=== PATIENT | female | born 1990 | race Asian ===

== ENCOUNTER 2017-01-14 11:55 | Inpatient (IN) | payer MEDICAID ==
[~2017-01-14] VITALS: Ht 165.1 cm; Wt 79.4 kg
[2017-01-14] MEDS ORDERED: SODIUM CHLORIDE 0.9% 1,000 ML IV ONE (12:26)
[2017-01-14] MEDS ORDERED: SODIUM CHLORIDE 0.9% 1,000ML IVBOLUS ONE (12:30)
[2017-01-14] MEDS ORDERED: ACETAMINOPHEN 500 MG TABLET PO ONE (12:30)
[2017-01-14] MEDS ORDERED: SODIUM CHLORIDE FLUSH 10ML SYR IVF ONE (12:30)
[2017-01-14 12:52] LABS: ASPARTATE AMINO TRANSFERASE 13 U/L (15-37); BLOOD UREA NITROGEN 13 mg/dL (7-18)
[2017-01-14] MEDS ORDERED: CEFTRIAXONE 1,000 MG in SODIUM CHLORIDE 0.9% 50 ML IVPB ONE (13:00)
[2017-01-14] MEDS ORDERED: CEFTRIAXONE PMX 1GM/50ML 50 ML IV SCH (13:00)
[2017-01-14] MEDS ORDERED: CEFTRIAXONE PMX 1GM/50ML 50 ML IVPB ONE (13:00)
[2017-01-14] MEDS ORDERED: ACETAMINOPHEN 500 MG TABLET ONE (13:15)
[2017-01-14] MEDS ORDERED: CEFTRIAXONE PMX 1GM/50ML 50 ML ONE (13:15)
[2017-01-14] MEDS ORDERED: POLYETHYLENE GLYCOL 17 GM PACKET PO PRN (16:00)
[2017-01-14] MEDS ORDERED: BISACODYL 10 MG SUPP PR PRN (16:00)
[2017-01-14] MEDS ORDERED: OXYcodone IR 5MG TABLET PO PRN (16:00)
[2017-01-14] MEDS ORDERED: DOCUSATE 100 MG CAPSULE PO PRN (16:00)
[2017-01-14] MEDS ORDERED: ONDANSETRON 2MG/ML, 2ML IVPush PRN (16:00)
[2017-01-14 16:56] VITALS: BP 112/72
[2017-01-14] MEDS: SODIUM CHLORIDE 0.9% 1,000 ML IV SCH (17:38)
[2017-01-14 19:07] LABS: DAU SCREEN DISCLAIMER
[2017-01-14 19:23] VITALS: BP 109/68
[2017-01-14] MEDS: ENOXAPARIN 40 MG/0.4 ML SQ SCH (21:00)
[2017-01-15] MEDS: SODIUM CHLORIDE 0.9% 1,000 ML IV SCH
[2017-01-15] MEDS: ACETAMINOPHEN 325 MG TABLET PO PRN ×4 (00:04→19:58)
[2017-01-15 01:32] VITALS: BP 102/51
[2017-01-15] MEDS: MEROPENEM 1 GM in SODIUM CHLORIDE 0.9% 100 ML IV SCH ×3 (04:56→21:09)
[2017-01-15] MEDS ORDERED: MEROPENEM 1 GM in SODIUM CHLORIDE 0.9% 50 ML IV SCH (05:00)
[2017-01-15 05:28] LABS: BLOOD UREA NITROGEN 8 mg/dL (7-18)
[2017-01-15 07:06] VITALS: BP 117/78
[2017-01-15 13:00] VITALS: BP 122/65
[2017-01-15] MEDS ORDERED: CEFTRIAXONE PMX 1GM/50ML 50 ML IV SCH ×2 (13:00→15:00)
[2017-01-15 19:10] VITALS: BP 126/84
[2017-01-15] MEDS: ENOXAPARIN 40 MG/0.4 ML SQ SCH (21:00)
[2017-01-16 03:55] VITALS: BP 118/76
[2017-01-16] MEDS: MEROPENEM 1 GM in SODIUM CHLORIDE 0.9% 100 ML IV SCH ×2 (05:04→13:38)
[2017-01-16 06:43] VITALS: BP 130/87
[2017-01-16] MEDS: ACETAMINOPHEN 325 MG TABLET PO PRN ×2 (07:18→13:43)
[2017-01-16 12:40] VITALS: BP 122/84
[2017-01-16] MEDS ORDERED: CEFD300C37 PO (16:12)
== END 2017-01-16 17:55 | disposition home or self-care (01) | DRG 872 ==
LOC: ED 12:52 → EDIP 14:17 → 3NE 16:49
PROVIDERS: ADMIT Internal Medicine; ATTEND Internal Medicine
DX: A41.9 Sepsis, unspecified organism (principal); N10 Acute pyelonephritis; F12.90 Cannabis use, unspecified, uncomplicated; F17.290 Nicotine dependence, other tobacco product, uncomplicated; Z80.0 Family history of malignant neoplasm of digestive organs
CPT/HCPCS: 36415; 71010; 76770; 80048; 80053; 80307; 81001; 83605; 83735; 84100; 84145; 84443; 84703; 85025; 87040; 87077; 87086; 87186; 93005; 96365; 96366; J0696; J2185; J7030

== ENCOUNTER 2018-06-09 05:29 | Inpatient (IN) | payer MEDICAID ==
[~2018-06-09] VITALS: Ht 165.1 cm; Wt 104.5 kg
[~2018-06-09 05:29] MED LIST: CEFD300C37 PO
[2018-06-09 06:35] LABS: MICROSCOPIC INDICATED
[2018-06-09 06:38] LABS: AMPHETAMINE SCREEN, URINE Negative (Negative); BARBITURATE SCREEN, URINE Negative (Negative); BENZODIAZEPINE SCREEN, URINE Negative (Negative); CANNABINOID SCREEN, URINE Negative (Negative); COCAINE SCREEN, URINE Negative (Negative); METHADONE SCREEN, URINE Negative (Negative); OPIATE SCREEN, URINE Negative (Negative)
[2018-06-09] MEDS ORDERED: OXYTOCIN 30U/ 0.9% NaCL 500ML 500 ML IV ONE (06:54)
[2018-06-09] MEDS ORDERED: D5%-LACTATED RINGERS 1,000 ML IV SCH (06:54)
[2018-06-09] MEDS ORDERED: AMPICILLIN 2 GM in SODIUM CHLORIDE 0.9% 100 ML IVPB STA (06:54)
[2018-06-09] MEDS ORDERED: ONDANSETRON 2MG/ML, 2ML IVPush PRN (07:00)
[2018-06-09] MEDS ORDERED: CALCIUM CARBONATE 500 MG TAB.CHEW PO PRN ×2 (07:00→19:30)
[2018-06-09] MEDS ORDERED: FENTANYL PF 100 MCG/2ML IV PRN (07:00)
[2018-06-09] MEDS ORDERED: FENTANYL PF 100 MCG/2ML IVPush PRN (07:00)
[2018-06-09 07:30] LABS: BASOPHILS # (AUTO) 0.07 x10^3/uL (0-0.1); BASOPHILS % (AUTO) 1 % (0-1); EOSINOPHILS # (AUTO) 0.05 x10^3/uL (0-0.4); EOSINOPHILS % (AUTO) 0 % (1-7); LYMPHOCYTES # (AUTO) 1.97 x10^3/uL (1-3.4); LYMPHOCYTES % (AUTO) 17 % (22-44); MD NO; MEAN CORPUSCULAR HGB CONC 32.5 g/dL (32.4-35.8); MEAN CORPUSCULAR VOLUME 89.3 fL (80-100); MEAN PLATELET VOLUME 8.6 fL (7.4-10.4); MONOCYTES # (AUTO) 0.44 x10^3/uL (0.2-0.8); MONOCYTES % (AUTO) 4 % (2-9); NEUTROPHILS # (AUTO) 9.17 x10^3/uL (1.8-6.8); NEUTROPHILS % (AUTO) 78 % (42-75); PLATELET COUNT 262 x10^3/uL (130-400)
[2018-06-09 07:38] VITALS: BP 119/70
[2018-06-09] MEDS: LACTATED RINGERS 1,000 ML IV SCH ×2 (07:54→09:02)
[2018-06-09] MEDS ORDERED: FENTANYL/BUPIV./NS/PF 250 ML EPIDCONT SCH (08:25)
[2018-06-09] MEDS ORDERED: BUPIVACAINE 0.25% ONE (08:33)
[2018-06-09] MEDS ORDERED: FENTANYL PF 500 MCG, BUPIVACAINE/PF 0.5%, 30ML 62.5 ML in SODIUM CHLORIDE 0.9% 177.5 ML EPIDCONT SCH (09:00)
[2018-06-09] MEDS: AMPICILLIN 1 GM in SODIUM CHLORIDE 0.9% 100 ML IVPB SCH ×2 (11:25→15:16)
[2018-06-09] MEDS ORDERED: OXYTOCIN 30U/ 0.9% NaCL 500ML 500 ML IV PRN (15:22)
[2018-06-09] MEDS ORDERED: OXYTOCIN 30U/ 0.9% NaCL 500ML 500 ML ONE ×2 (15:25→19:09)
[2018-06-09] MEDS ORDERED: MISOPROSTOL 200 MCG TABLET ONE (15:25)
[2018-06-09] MEDS ORDERED: NEWBORN KIT ONE (17:38)
[2018-06-09] MEDS ORDERED: MISOPROSTOL 200 MCG TABLET PR ONE (18:30)
[2018-06-09] MEDS ORDERED: IBUPROFEN 600 MG TABLET ONE (19:09)
[2018-06-09] MEDS: IBUPROFEN 600 MG TABLET PO PRN (19:22)
[2018-06-09] MEDS: OXYTOCIN 30U/ 0.9% NaCL 500ML 500 ML IV SCH (19:24)
[2018-06-09] MEDS ORDERED: MISOPROSTOL 200 MCG TABLET PO PRN (19:30)
[2018-06-09] MEDS ORDERED: HYDROcodone/APAP 5/325 TABLET PO PRN ×2 (19:30)
[2018-06-09] MEDS ORDERED: BISACODYL 10 MG SUPP PR PRN (19:30)
[2018-06-09] MEDS ORDERED: ONDANSETRON 2MG/ML, 2ML IV PRN (19:30)
[2018-06-09 19:45] VITALS: BP 119/75
[2018-06-10 00:15] VITALS: BP 121/66
[2018-06-10 01:12] LABS: BASOPHILS # (AUTO) 0.04 x10^3/uL (0-0.1); BASOPHILS % (AUTO) 0 % (0-1); EOSINOPHILS # (AUTO) 0.08 x10^3/uL (0-0.4); EOSINOPHILS % (AUTO) 1 % (1-7); LYMPHOCYTES # (AUTO) 2.44 x10^3/uL (1-3.4); LYMPHOCYTES % (AUTO) 17 % (22-44); MD NO; MEAN CORPUSCULAR HEMOGLOBIN 30.5 pg (27.0-34.8); MEAN CORPUSCULAR HGB CONC 33.9 g/dL (32.4-35.8); MEAN PLATELET VOLUME 8.3 fL (7.4-10.4); MONOCYTES # (AUTO) 0.64 x10^3/uL (0.2-0.8); MONOCYTES % (AUTO) 4 % (2-9); NEUTROPHILS # (AUTO) 11.44 x10^3/uL (1.8-6.8); NEUTROPHILS % (AUTO) 78 % (42-75); PLATELET COUNT 268 x10^3/uL (130-400); RED BLOOD COUNT 4.15 x10^6/uL (3.82-5.3)
[2018-06-10] MEDS ORDERED: DIPH,PERTUSS(ACELL),TET VAC/PF NC IM-VACC ONE (01:30)
[2018-06-10] MEDS ORDERED: MEASLES,MUMPS&RUBELLA VACC/PF 0.5 ML SQ-VACC ONE (01:30)
[2018-06-10] MEDS: IBUPROFEN 600 MG TABLET PO PRN ×3 (01:53→13:45)
[2018-06-10 04:10] VITALS: BP 115/76
[2018-06-10] MEDS: OXYTOCIN 30U/ 0.9% NaCL 500ML 500 ML IV SCH (05:18)
[2018-06-10 07:49] VITALS: BP 114/79
[2018-06-10] MEDS: PRENATAL VIT/IRON/FA 1 EACH TABLET PO SCH (08:36)
[2018-06-10] MEDS: DOCUSATE 100 MG CAPSULE PO PRN (08:37)
[2018-06-10] MEDS ORDERED: PNEUMOCOCCAL 23 VACCINE IM-VACC ONE (10:30)
[2018-06-10 19:15] VITALS: BP 118/75
[2018-06-11] MEDS: IBUPROFEN 600 MG TABLET PO PRN ×2 (00:02→09:41)
[2018-06-11 08:00] VITALS: BP 123/87
[2018-06-11] MEDS: DOCUSATE 100 MG CAPSULE PO PRN (09:41)
[2018-06-11] MEDS: PRENATAL VIT/IRON/FA 1 EACH TABLET PO SCH (09:41)
[2018-06-11] MEDS ORDERED: IBUP-1222 PO (10:25)
== END 2018-06-11 18:00 | disposition home or self-care (01) | DRG 807 ==
LOC: LDOP 05:29 → LDIP 06:54 → 2NW 19:40
PROVIDERS: ADMIT Obstetrics & Gynecology; ATTEND Obstetrics & Gynecology
PROC: 10907ZC Drainage of Amniotic Fluid, Therapeutic from Products of Conception, Via Natural or Artificial Opening (ICD-10-PCS; principal; 2018-06-09)
PROC: 10E0XZZ Delivery of Products of Conception, External Approach (ICD-10-PCS; 2018-06-09)
PROC: 10H07YZ Insertion of Other Device into Products of Conception, Via Natural or Artificial Opening (ICD-10-PCS; 2018-06-09)
PROC: 3E0R3BZ Introduction of Anesthetic Agent into Spinal Canal, Percutaneous Approach (ICD-10-PCS; 2018-06-09)
PROC: 00HU33Z Insertion of Infusion Device into Spinal Canal, Percutaneous Approach (ICD-10-PCS; 2018-06-09)
DX: O99.324 Drug use complicating childbirth (principal); Z37.0 Single live birth; F12.10 Cannabis abuse, uncomplicated; F15.10 Other stimulant abuse, uncomplicated; O99.824 Streptococcus B carrier state complicating childbirth; Z3A.38 38 weeks gestation of pregnancy; Z87.891 Personal history of nicotine dependence
CPT/HCPCS: 36415; J7121; 80307; 81001; 85025; 86850; 86900; 90656; 90715; 90732; G0378; J0290; J3010; J3490; J2590; J7050; J7120